=== PATIENT | female | born 1980 ===

== ENCOUNTER 2018-01-08 08:47 | Inpatient (IN) | payer MEDICAID, OTHER ==
[2018-01-08 09:16] VITALS: BMI 22.1
[2018-01-08 09:47] LABS: BASO % 0.5 % (0.0-2.0); EOS # 0.1 K/uL (0.0-0.7); EOS % 1.7 % (0.0-4.0); HEMOGLOBIN 11.4 g/dL (12.0-16.0); LYMPH # 1.9 K/uL (1.0-4.3); LYMPH % 31.9 % (20.0-40.0); MEAN CELL VOLUME 81.4 fl (81.0-99.0); MEAN CORPUSCULAR HEMOGLOBIN 25.7 pg (27.0-31.0); MEAN CORPUSCULAR HGB CONC 31.6 g/dL (33.0-37.0); MEAN PLATELET VOLUME 9.2 fl (7.2-11.7); MONO # 0.6 K/uL (0.0-0.8); MONO % 9.6 % (0.0-10.0); NEUT # 3.3 K/uL (1.8-7.0); NEUT % 56.3 % (50.0-75.0); NRBC % 0.1 % (0.0-0.0); RBC 4.41 Mil/uL (3.80-5.20); RED CELL DISTRIBUTION WIDTH 15.8 % (11.5-14.5); WHITE BLOOD COUNT 5.9 K/uL (4.8-10.8)
[2018-01-08 10:01] LABS: BLOOD UREA NITROGEN 6 mg/dl (7-17); CALCIUM 9.3 mg/dL (8.4-10.2); GFR NON-AFRICAN AMERICAN > 60
--- NOTE | 2018-01-08 10:01 | ED PDOC ---
Syncope/Near Syncope/Dizziness Time Seen by Provider: 01/08/18 09:07 Chief Complaint (Nursing): Syncope Chief Complaint (Provider): Syncope History Per: Patient, EMS History/Exam Limitations: no limitations Onset/Duration Of Symptoms: Hrs (OFFICE CLIN ASST) Activity At Onset Of Symptoms: Had Just Stood up Additional Complaint(s): 37 year old female presents to the ED via EMS complaining of experiencing a syncopal episode earlier today. Patient reports she had gotten up from bed to go to the bathroom when she passed out. Patient does not remember all the details and the episode was unwitnessed. She does remember hitting her head and waking up with a headache. Patient indicates feeling an electric shock down her neck to her arm during the fall. Denies biting tongue and urinary incontinence. She woke up right away and was immediately back to baseline. Denies CP or difficulty breathing. Patient feels anxious and has a headache and neck pain. She also reports having a history of migraines in the past as well as chronic neck pain for many years. Patient takes Dilaudid for neck pain PO at home and Xanax for anxiety. PMD: Dr. Mittal Past Medical History Reviewed: Historical Data, Nursing Documentation, Vital Signs Vital Signs: Last Vital Signs Temp 98.2 F 01/08/18 08:48 Pulse 72 01/08/18 08:48 Resp 18 01/08/18 08:48 BP 108/76 01/08/18 08:48 Pulse Ox 95 01/08/18 08:48 - Medical History PMH: Anemia, Anxiety, Cardia Arrhythmia, Migraine, Seizures, Chronic Pain Denies: HIV, Chronic Kidney Disease Other PMH: Chronic neck pain, sick sinus syndrome - Surgical History Surgical History: Pacemaker, Other surgeries: Tubal ligation - Family History Family History: States: Unknown Family Hx - Home Medications Home Medications: Ambulatory Orders Medication Instructions Recorded Fludrocortisone [Florinef] 0.2 mg PO HS 02/05/16 Midodrine [Proamatine] 10 mg PO TID 02/05/16 Quetiapine Fumarate [Seroquel] 100 mg PO HS 02/05/16 Gabapentin [Neurontin] 600 mg PO TID #90 tab 02/06/16 ALPRAZolam [Xanax] 0.25 mg PO HS 01/08/18 Aspirin [Ecotrin] 81 mg PO DAILY 01/08/18 Buspirone HCl [Buspirone HCl] 15 mg PO Q12 01/08/18 Digoxin [Digitek] 125 mcg PO DAILY 01/08/18 Ergocalciferol (Vitamin D2) 50,000 unit PO MO 01/08/18 [Vitamin D2] HYDROmorphone [Dilaudid] 2 mg PO Q4 PRN 01/08/18 - Allergies Allergies/Adverse Reactions: Allergies Allergy/AdvReac Type Severity Reaction Status Date / Time acetaminophen [From Percocet] Allergy RASH Verified 01/08/18 09:22 oxycodone HCl [From Percocet] Allergy RASH Verified 01/08/18 09:22 sumatriptan [From Imitrex] Allergy RASH Verified 01/08/18 09:22 sumatriptan succinate Allergy RASH Verified 01/08/18 09:22 [From Imitrex] local anesthetic Allergy RASH Uncoded 01/08/18 09:22 Review of Systems ROS Statement: Except As Marked, All Systems Reviewed And Found Negative Genitourinary Female: Negative for: Incontinence Musculoskeletal: Positive for: Neck Pain Neurological: Positive for: Headache Psych: Positive for: Anxiety Physical Exam - Reviewed Nursing Documentation Reviewed: Yes Vital Signs Reviewed: Yes - Physical Exam Appears: Positive for: Non-toxic, No Acute Distress Head Exam: Positive for: ATRAUMATIC, NORMAL INSPECTION, NORMOCEPHALIC Skin: Positive for: Normal Color, Warm, Dry Eye Exam: Positive for: Normal appearance, EOMI, PERRL ENT: Positive for: Normal ENT Inspection Neck: Negative for: Normal (diffuse tenderness) Cardiovascular/Chest: Positive for: Regular Rate, Rhythm, Other (Pacemaker on left side of chest with no swelling and tenderness to the area). Negative for: Murmur Respiratory: Positive for: Normal Breath Sounds. Negative for: Wheezing, Respiratory Distress Gastrointestinal/Abdominal: Positive for: Normal Exam, Soft. Negative for: Tenderness Extremity: Positive for: Normal ROM Neurologic/Psych: Positive for: Alert, belt picker II-XII (normal), Oriented. Negative for: Motor/Sensory Deficits - Laboratory Results Result Diagrams: 01/09/18 06:00 01/09/18 06:00 - ECG ECG Rhythm: Positive for: Venticular Paced. Negative for: Normal QRS, ST/T Changes Rate: 90 O2 Sat by Pulse Oximetry: 95 (RA) Pulse Ox Interpretation: Normal Medical Decision Making Medical Decision Making: Initial Impression: Possible syncopal episode Differential: --Cardiac arrhythmia, pacemaker dysfunction, seizures, vasovagal syncope --Head injury: intracranial bleeding --Neck pain: acute on chronic neck pain Initial Plan: --CT cervical spine --CT head --ECG --BMP --Drug screen --Troponin --Valproic acid --ED urine --ED urine dipstick --CBC --Reglan 10mg sodium chloride 0.9% 50mL --Toradol 30mg IV --Xanax 0.5mg PO 12:[address] FINDINGS: HEMORRHAGE: No intracranial hemorrhage. BRAIN: Normal puri-white matter differentiation and density are appreciated throughout the cerebrum and cerebellum with the brainstem appearing unremarkable as well. There is no mass effect. There is no suspicious extra-axial fluid collection and the midline brain anatomy appears diffusely unremarkable. VENTRICLES: Unremarkable. No hydrocephalus. CALVARIUM: No destructive bony lesion or displaced fracture identified including through the skullbase. PARANASAL SINUSES: Unremarkable as visualized. No significant inflammatory changes. MASTOID AIR CELLS: Unremarkable as visualized. No inflammatory changes. OTHER FINDINGS: None. IMPRESSION: Stable unremarkable noncontrast CT of the head. 12:23 CT Cervical Spine FINDINGS: VERTEBRAE: There is an anterior column fracture and involving the C4 vertebral body with the inferior endplate minimally anteriorly displaced. There is borderline anterior wedging of the vertebral body which may indicate that this is a hyperflexion injury. Both flexion and extension injury type not completely excluded. Mid and posterior columns of this level appear unremarkable with no fracture identified otherwise. The C4 spinous process is intact as well as bilateral facet joints and laminae. Normal alignment is appreciated nevertheless and there is no spondylolisthesis. No additional fractures seen throughout the remainder of the cerebral cervical spine with C1-2 articulation in configuration appearing normal. Craniocervical junction appears intact as well. Prevertebral soft tissues appear unremarkable. DISCS/SPINAL CANAL/NEURAL FORAMINA: No significant central canal or neural foraminal stenosis. Discs heights are grossly preserved. PARASPINAL SOFT TISSUES: Unremarkable. OTHER FINDINGS: None. IMPRESSION: Flexion/extension fracture of C4 including including a teardrop type triangular fracture of the inferior margins of anterior endplate of C4 but without posterior element fracture or distraction appreciated. Normal cervical curvature preserved. Please see discussion above. Findings discussed Dr. Alas with written down and read back verification , 12:10 p.m. [address] Knox who recommends hard collar and admission for possible surgery. Hard collar applied and exchanged from previous collar. Scribe Attestation: Documented by Arnoldo Gonzales acting as a scribe for Kristin Alas MD. Provider Scribe Attestation: All medical record entries made by the Scribe were at my direction and personally dictated by me. I have reviewed the chart and agree that the record accurately reflects my personal performance of the history, physical exam, medical decision making, and the department course for this patient. I have also personally directed, reviewed, and agree with the discharge instructions and disposition. Disposition - Clinical Impression Clinical Impression: Syncope and collapse, SSS (sick sinus syndrome), Cervical vertebral fracture, C4 cervical fracture - Patient ED Disposition Is Patient to be Admitted: Yes Discussed With : Antony Leblanc Counseled Patient/Family Regarding: Studies Performed, Diagnosis - Disposition Disposition Time: 13:00 Condition: FAIR - Pt Status Changed To: Hospital Disposition Of: Inpatient - Admit Certification Admit to Inpatient:: After my assessment, the patient will require hospitalization for at least two midnights. This is because of the severity of symptoms shown, intensity of services needed, and/or the medical risk in this patient being treated as an outpatient. - POA Present On Arrival: Falls Or Trauma
[2018-01-08 11:32] LABS: BARBITURATES, UR NEGATIVE (NEGATIVE); BENZODIAZEPINES, UR POSITIVE (NEGATIVE); OPIATES, UR NEGATIVE (NEGATIVE); PHENCYCLIDINE, UR NEGATIVE (NEGATIVE)
--- NOTE | 2018-01-08 12:13 | CT ---
Date of service: 01/08/2018 PROCEDURE: CT HEAD WITHOUT CONTRAST. HISTORY: head injury COMPARISON: Noncontrast head CT 02/05/2016. TECHNIQUE: Axial computed tomography images were obtained through the head/brain without intravenous contrast. Radiation dose: Total exam DLP = 838.73 mGy-cm. This CT exam was performed using one or more of the following dose reduction techniques: Automated exposure control, adjustment of the mA and/or kV according to patient size, and/or use of iterative reconstruction technique. FINDINGS: HEMORRHAGE: No intracranial hemorrhage. BRAIN: Normal puri-white matter differentiation and density are appreciated throughout the cerebrum and cerebellum with the brainstem appearing unremarkable as well. There is no mass effect. There is no suspicious extra-axial fluid collection and the midline brain anatomy appears diffusely unremarkable. VENTRICLES: Unremarkable. No hydrocephalus. CALVARIUM: No destructive bony lesion or displaced fracture identified including through the skullbase. PARANASAL SINUSES: Unremarkable as visualized. No significant inflammatory changes. MASTOID AIR CELLS: Unremarkable as visualized. No inflammatory changes. OTHER FINDINGS: None. IMPRESSION: Stable unremarkable noncontrast CT of the head.
[2018-01-08] MEDS ORDERED: Morphine 4 MG/ML VIAL IVP ONE ×2 (12:16→16:30)
--- NOTE | 2018-01-08 12:24 | CT ---
Date of service: 01/08/2018 PROCEDURE: CT Cervical Spine without contrast HISTORY: neck pain head injury hx of chronic pain COMPARISON: None available. TECHNIQUE: Axial computed tomography images were obtained of the cervical spine without the use of intravenous contrast. Coronal and sagittal reformatted images were created and reviewed. Radiation dose: Total exam DLP = 275.03 mGy-cm. This CT exam was performed using one or more of the following dose reduction techniques: Automated exposure control, adjustment of the mA and/or kV according to patient size, and/or use of iterative reconstruction technique. FINDINGS: VERTEBRAE: There is an anterior column fracture and involving the C4 vertebral body with the inferior endplate minimally anteriorly displaced. There is borderline anterior wedging of the vertebral body which may indicate that this is a hyperflexion injury. Both flexion and extension injury type not completely excluded. Mid and posterior columns of this level appear unremarkable with no fracture identified otherwise. The C4 spinous process is intact as well as bilateral facet joints and laminae. Normal alignment is appreciated nevertheless and there is no spondylolisthesis. No additional fractures seen throughout the remainder of the cerebral cervical spine with C1-2 articulation in configuration appearing normal. Craniocervical junction appears intact as well. Prevertebral soft tissues appear unremarkable. DISCS/SPINAL CANAL/NEURAL FORAMINA: No significant central canal or neural foraminal stenosis. Discs heights are grossly preserved. PARASPINAL SOFT TISSUES: Unremarkable. OTHER FINDINGS: None. IMPRESSION: Flexion/extension fracture of C4 including including a teardrop type triangular fracture of the inferior margins of anterior endplate of C4 but without posterior element fracture or distraction appreciated. Normal cervical curvature preserved. Please see discussion above. Findings discussed Dr. Alas with written down and read back verification 01/08/2018, 12:10 p.m.. .
[2018-01-08] MEDS ORDERED: Morphine 4 MG/ML VIAL ONE ×2 (12:25→16:28)
[2018-01-08] MEDS ORDERED: Valproate 500 MG in Sodium Chloride 0.9% 100 ML IVPB ONE ×2 (13:00→13:17)
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
--- NOTE | 2018-01-08 16:24 | CARD ---
APPROVED REPORT Date of service: 01/08/2018 EKG Measurement Heart [id number] <Conclusion> Ventricular-paced rhythm Abnormal ECG
--- NOTE | 2018-01-08 20:39 | CP.PCM.CON ---
History of Present Illness - History of Present Illness History of Present Illness: ASKED TO SEE PT BY DR MARTINEZ FOR SYNCOPE. 37 year old female presents to the ED via EMS complaining of experiencing a syncopal episode earlier today. Patient reports she had gotten up from bed to go to the bathroom. She remembers reaching down for the toilet bowl lid afterwhich she passed out. Patient does not remember all the details and the episode was unwitnessed. She does remember hitting her head and waking up with a headache. Denies biting tongue and urinary incontinence. She woke up right away and was immediately back to baseline. Denies CP or difficulty breathing. denies dizziness, palp, blurry vission, double vision pre- or post- episode. Patient takes Dilaudid for neck pain PO at home and Xanax for anxiety. 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 THE CURRENT SYNCOPAL EPISODE DID NOT HAVE PRECEDING SYMPTOMS. ALSO SHE HAS A SZ D/O HOWEVER THIS EPISODE DID NOT HAVE A PRODROME OR POST-ICTAL STATE. PT HAS A PPM FOR TACH/JORGE A ALSO GIVES A HX OF PE IN 2016, TREATED WITH ASA ONLY AT THIS POINT. Review of Systems - Constitutional Constitutional: As Per HPI. absent: Anorexia, Chills, Daytime Sleepiness, Excessive Sweating, Fatigue, Fever, Frequent Falls, Headache, Increased Appetite , Lethargy, Malaise, Night Sweats, Snoring, Sleep Apnea, Weight Gain, Weight Loss, Weakness, Other - EENT Eyes: As Per HPI. absent: Blind Spots, Blurred Vision, Change in Vision, Decreased Night Vision, Diplopia, Discharge, Dry Eye, Exophthalmos, Floaters, Irritation, Itchy Eyes, Loss of Peripheral Vision, Pain, Photophobia, Requires Corrective Lenses, Sees Flashes, Spots in Vision, Tunnel Vision, Other Visual Disturbances, Loss of Vision, Other Ears: As Per HPI. absent: Decreased Hearing, Ear Discharge, Ear Pain, Tinnitus , Abnormal Hearing, Disequilibrium, Other Nose/Mouth/Throat: As Per HPI. absent: Epistaxis, Nasal Congestion, Nasal Discharge, Nasal Obstruction, Nasal Trauma, Nose Pain, Post Nasal Drip, Sinus Pain, Sinus Pressure, Bleeding Gums, Change in Voice, Dental Pain, Dry Mouth, Dysphagia, Halitosis, Hoarsness, Lip Swelling, Mouth Lesions, Mouth Pain, Odynophagia, Sore Throat, Throat Swelling, Tongue Swelling, Facial Pain, Neck Pain, Neck Mass, Other - Breasts Breasts: As Per HPI. absent: Change in Shape, Mass, Pain, Nipple Discharge, Nipple Inversion, Skin Changes, Swelling, Other - Cardiovascular Cardiovascular: As Per HPI. absent: Acrocyanosis, Chest Pain, Chest Pain at Rest, Chest Pain with Activity, Claudication, Diaphoresis, Dyspnea, Dyspnea on Exertion, Edema, Irregular Heart Rhythm, Pain Radiating to Arm/Neck/Jaw, Leg Edema, Leg Ulcers, Lightheadedness, Orthopnea, Palpitations, Paroxysmal Nocturnal Dyspnea, Pedal Edema, Radiating Pain, Rapid Heart Rate, Slow Heart Rate, Syncope, Other - Respiratory Respiratory: As Per HPI. absent: Cough, Dyspnea, Hemoptysis, Dyspnea on Exertion, Wheezing, Snoring, Stridor, Pain on Inspiration, Chest Congestion, Excessive Mucous Production, Change in Mucous Color, Pain with Coughing, Other - Gastrointestinal Gastrointestinal: As Per HPI. absent: Abdominal Pain, Belching, Bloating, Change in Bowel Habits, Change in Stool Character, Coffee Ground Emesis, Constipation, Cramping, Diarrhea, Dyspepsia, Dysphagia, Early Satiety, Excessive Flatus, Fecal Incontinence, Heartburn, Hematemesis, Hematochezia, Loose Stools, Melena, Nausea, Odynophagia, Temesmus, Vomiting, Other - Genitourinary Genitourinary: As Per HPI. absent: Change in Urinary Stream, Difficulty Urinating, Dysuria, Flank Pain, Hematuria, Pyuria, Nocturia, Urinary Incontinence, Urinary Frequency, Urinary Hesitance, Urinary Urgency, Voiding Freq/Small Amts, Freq UTI, Hx Renal/Bladder Calculi, Hx /Renal Surgery, Bladder Distension, Other - Reproductive: Female Reproductive:Female: As Per HPI. absent: Amenorrhea, Amenorrhea/ Control, Currently Menstual, Cycle <21 Days, Cycle >35 Days, Cycle Variable, Menses 1-7 Days, Menses >/= 8 Days, Menses Variable, Cycle > 4 Weeks Between, No Menses for 6 Months, Heavy Menses, Light Menses, Normal Menses, Spotting Between Cycles , S/P Hysterectomy, Menopausal, Post Menopausal, Premenarche, Abnormal Vaginal Bleeding, Dysmenorrhea, Dyspareunia, Genital Lesions, Genital Pruritis, Pelvic Pain, Prolapse Symptoms, Sexual Dysfunction, Vaginal Discharge, Vaginal Dryness , Vaginal Odor, Vaginal Pruritis, Other - Menstruation Menstruation: As Per HPI. absent: Amenorrhea, Amenorrhea/ Control, Currently Menstual, Cycle <21 Days, Cycle >35 Days, Cycle Variable, Menses 1-7 Days, Menses >/= 8 Days, Menses Variable, Cycle > 4 Weeks Between, No Menses for 6 Months, Heavy Menses, Light Menses, Normal Menses, Spotting Between Cycles , S/P Hysterectomy, Menopausal, Post Menopausal, Premenarche, Abnormal Vaginal Bleeding, Dysmenorrhea, Other - Musculoskeletal Musculoskeletal: As Per HPI, Neck Pain. absent: Abnormal Gait, Arthralgias, Atrophy, Back Pain, Deformity, Joint Swelling, Limited Range of Motion, Loss of Height, Muscle Cramps, Muscle Weakness, Myalgias, Numbness, Radiating Pain into Limb, Stiffness, Tingling, Other - Integumentary Integumentary: As Per HPI. absent: Acne, Alopecia, Bleeding Lesions, Change in Hair, Change in Nails, Change in Pigmentation, Changing Lesions, Dry Skin, Erythema, Furuncle, Hirsutism, Lesions, New Lesions, Non-Healing Lesions, Photosensitivity, Pruritus, Rash, Skin Pain, Skin Ulcer, Sores, Striae, Swelling , Unusual Bruising, Wounds, Jaundice, Other - Neurological Neurological: As Per HPI. absent: Abnormal Gait, Abnormal Hearing, Abnormal Movements, Abnormal Speech, Behavioral Changes, Burning Sensations, Confusion, Convulsions, Disequilibrium, Dizziness, Numbness, Focal Weakness, Frequent Falls , Headaches, Lack of Coordination, Loss of Vision, Memory Loss, Paresthesias, Radicular Pain, Restless Legs, Sensory Deficit, Syncope, Tingling, Tremor, Vertigo, Weakness, Other Visual Disturbances, Other - Psychiatric Psychiatric: As Per HPI. absent: Abnormal Sleep Pattern, Anhedonia, Anxiety, Auditory Hallucinations, Behavioral Changes, Change in Appetite, Change in Libido, Confusion, Depression, Difficulty Concentrating, Hallucinations, Homicidal Ideation, Hopelessness, Irritability, Memory Loss, Mood Swings, Panic Attacks, Paranoia, Suicidal Ideation, Visual Hallucinations, Tactile Hallucinations, Other - Endocrine Endocrine: As Per HPI. absent: Change in Body Appearance, Change in Libido, Cold Intolorance, Deepening of Voice, Excessive Sweating, Fatigue, Flushing, Heat Intolorance, Increase in Ring/Shoe/Hat Size, Palpitations, Polydipsia, Polyphagia, Polyuria, Other - Hematologic/Lymphatic Hematologic: As Per HPI. absent: Easy Bleeding, Easy Bruising, Lymphadenopathy , Other Past Patient History - Past Medical History & Family History Past Medical History?: Yes - Past Social History Smoking Status: vapes Alcohol: None Drugs: Denies Domestic Violence: Negative - CARDIAC Hx Cardiac Disorders: Yes - PULMONARY Hx Respiratory Disorders: No - NEUROLOGICAL Hx Neurological Disorder: Yes - HEENT Hx HEENT Problems: No - RENAL Hx Chronic Kidney Disease: No - ENDOCRINE/METABOLIC Hx Endocrine Disorders: No - HEMATOLOGICAL/ONCOLOGICAL Hx Blood Disorders: Yes - INTEGUMENTARY Hx Dermatological Problems: No - MUSCULOSKELETAL/RHEUMATOLOGICAL Hx Musculoskeletal Disorders: Yes - GASTROINTESTINAL Hx Gastrointestinal Disorders: No - GENITOURINARY/GYNECOLOGICAL Hx Genitourinary Disorders: No - PSYCHIATRIC Hx Psychophysiologic Disorder: Yes - SURGICAL HISTORY Hx Surgeries: Yes Hx Section: Yes Hx Tubal Ligation: Yes Other/Comment: gastric sleeves - ANESTHESIA Hx Anesthesia: Yes Hx Anesthesia Reactions: No Meds Allergies/Adverse Reactions: Allergies Allergy/AdvReac Type Severity Reaction Status Date / Time acetaminophen [From Percocet] Allergy RASH Verified 01/08/18 09:22 oxycodone HCl [From Percocet] Allergy RASH Verified 01/08/18 09:22 sumatriptan [From Imitrex] Allergy RASH Verified 01/08/18 09:22 sumatriptan succinate Allergy RASH Verified 01/08/18 09:22 [From Imitrex] local anesthetic Allergy RASH Uncoded 01/08/18 09:22 Physical Exam - Constitutional Appears: Non-toxic - Head Exam Head Exam: ATRAUMATIC, NORMAL INSPECTION, NORMOCEPHALIC - Eye Exam Eye Exam: EOMI, Normal appearance, PERRL. absent: Conjunctival injection, Nystagmus, Periorbital swelling, Periorbital tenderness, Scleral icterus Pupil Exam: NORMAL ACCOMODATION, PERRL. absent: Fixed, Irregular, Miosis, Mydriatic, Unequal - ENT Exam ENT Exam: Mucous Membranes Moist, Normal Exam. absent: Mucous Membranes Dry, Normal External Ear Exam, Normal Oropharynx, TM's Normal Bilaterally - Neck Exam Additional comments: IN NECK HARNESS. - Respiratory Exam Respiratory Exam: Clear to Auscultation Bilateral, NORMAL BREATHING PATTERN. absent: Accessory Muscle Use, Chest Wall Tenderness, Decreased Breath Sounds, Prolonged Expiratory Phase, Rales, Rhonchi, Wheezes, Respiratory Distress, Stridor - Cardiovascular Exam Cardiovascular Exam: REGULAR RHYTHM, +S1, +S2, Systolic Murmur. absent: Bradycardia, Tachycardia, Clicks, Diastolic murmur, Gallop, Irregular Rhythm, JVD, RRR, Rubs, +S4 - GI/Abdominal Exam GI & Abdominal Exam: Normal Bowel Sounds, Soft. absent: Bruit, Diminished Bowel Sounds, Distended, Firm, Guarding, Hernia, Hyperactive Bowel Sounds, Hypoactive Bowel Sounds, Mass, Organomegaly, Pulsatile Mass, Rebound, Rigid, Tenderness - Rectal Exam Rectal Exam: Deferred - Extremities Exam Extremities exam: Positive for: normal inspection. Negative for: calf tenderness, full ROM, joint swelling, normal capillary refill, pedal edema, tenderness, pedal pulses present - Back Exam Back exam: NORMAL INSPECTION. absent: CVA tenderness (L), CVA tenderness (R), FULL ROM, muscle spasm, paraspinal tenderness, rash noted, tenderness, vertebral tenderness - Neurological Exam Neurological exam: Alert, CN II-XII Intact, Oriented x3, Reflexes Normal - Psychiatric Exam Psychiatric exam: Normal Affect, Normal Mood - Skin Skin Exam: Dry, Intact, Normal Color, Warm Results - Vital Signs Recent Vital Signs: Last Vital Signs Temp 97.9 F 01/08/18 19:04 Pulse 59 L 01/08/18 19:04 Resp 20 01/08/18 19:04 BP 107/72 01/08/18 19:04 Pulse Ox 100 01/08/18 19:04 - Labs Result Diagrams: 01/09/18 06:00 01/09/18 06:00 Labs: Laboratory Results - last 24 hr 01/08/18 01/08/18 01/08/18 08:59 09:22 09:22 WBC RBC Hgb Hct MCV MCH MCHC RDW Plt Count MPV Neut % (Auto) Lymph % (Auto) [place] % (Auto) Eos % (Auto) Baso % (Auto) Neut # (Auto) Lymph # (Auto) [place] # (Auto) Eos # (Auto) Baso # (Auto) Sodium Potassium Chloride Carbon Dioxide Anion Gap BUN Creatinine Est GFR ( Amer) Est GFR (Non-Af Amer) POC Glucose (mg/dL) 80 Random Glucose Calcium Troponin I Urine Opiates Screen Negative Urine Methadone Screen Negative Ur Barbiturates Screen Negative Valproic Acid < 10.0 L Ur Phencyclidine Scrn Negative Ur Amphetamines Screen Negative U Benzodiazepines Scrn Positive U Oth Cocaine Metabols Negative U Cannabinoids Screen Negative 01/08/18 01/08/18 09:30 09:30 WBC 5.9 RBC 4.41 Hgb 11.4 L Hct 36.0 MCV 81.4 D MCH 25.7 L MCHC 31.6 L RDW 15.8 H Plt Count 165 MPV 9.2 Neut % (Auto) 56.3 Lymph % (Auto) 31.9 [place] % (Auto) 9.6 Eos % (Auto) 1.7 Baso % (Auto) 0.5 Neut # (Auto) 3.3 Lymph # (Auto) 1.9 [place] # (Auto) 0.6 Eos # (Auto) 0.1 Baso # (Auto) 0.0 Sodium 138 Potassium 3.7 Chloride 106 Carbon Dioxide 25 Anion Gap 11 BUN 6 L Creatinine 0.6 L Est GFR ( Amer) > 60 Est GFR (Non-Af Amer) > 60 POC Glucose (mg/dL) Random Glucose 88 Calcium 9.3 Troponin I < 0.0120 Urine Opiates Screen Urine Methadone Screen Ur Barbiturates Screen Valproic Acid Ur Phencyclidine Scrn Ur Amphetamines Screen U Benzodiazepines Scrn U Oth Cocaine Metabols U Cannabinoids Screen Assessment & Plan (1) Syncope Status: Acute (2) SSS (sick sinus syndrome) Status: Acute (3) Orthostatic hypotension Status: Acute (4) Seizure disorder Status: Acute (5) Hx pulmonary embolism Status: Acute (6) Low BP Status: Acute - Assessment and Plan (Free Text) Plan: WOULD CONT MEDS IS. CANNOT TAKE BB OR CCB FOR TACHY/JORGE A DUE TO BP. ETIOLOGY OF SYNCOPE UNCLEAR, MAY BE MULTIFACTORIAL. WILL NEED ECHO.
[2018-01-08] MEDS ORDERED: Dextrose 5%/0.9% NS 1,000 ML IV SCH (22:45)
[2018-01-09 07:36] LABS: HEMOGLOBIN 10.3 g/dL (12.0-16.0); MEAN CELL VOLUME 80.7 fl (81.0-99.0); MEAN CORPUSCULAR HEMOGLOBIN 26.2 pg (27.0-31.0); MEAN CORPUSCULAR HGB CONC 32.5 g/dL (33.0-37.0); RBC 3.94 Mil/uL (3.80-5.20); RED CELL DISTRIBUTION WIDTH 15.9 % (11.5-14.5); WHITE BLOOD COUNT 5.9 K/uL (4.8-10.8)
[2018-01-09 07:53] LABS: ALB/GLOB RATIO 1.2 (1.0-2.1); ALBUMIN 3.3 g/dL (3.5-5.0); ALT/SGPT 19 U/L (9-52); AST/SGOT 16 U/L (14-36); BLOOD UREA NITROGEN 7 mg/dl (7-17); CALCIUM 8.6 mg/dL (8.4-10.2); GFR NON-AFRICAN AMERICAN > 60; HDL CHOLESTEROL 40 MG/DL (30-70)
[2018-01-09 08:03] LABS: LDL CHOLESTEROL 85 mg/dL (0-129)
[2018-01-09] MEDS: Digoxin 125 mcg (0.125 mg) Tab PO SCH (08:07)
[2018-01-09] MEDS: Pantoprazole 40 mg EC Tab PO SCH (08:08)
[2018-01-09 08:14] LABS: T4 7.64 ug/dl (5.5-11.0)
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
[2018-01-10] MEDS ORDERED: Valproate 500 MG in Sodium Chloride 0.9% 100 ML IVPB ONE (07:16)
[2018-01-10] MEDS: Pantoprazole 40 mg EC Tab PO SCH (08:13)
[2018-01-10] MEDS: Digoxin 125 mcg (0.125 mg) Tab PO SCH (08:15)
[2018-01-10] MEDS: Magnesium Oxide 400 mg Tab UD PO SCH ×2 (08:34→18:03)
[2018-01-10 14:06] LABS: INR 1.2; PROTHROMBIN TIME 13.4 Seconds (9.8-13.1)
[2018-01-10 14:08] LABS: PARTIAL THROMBOPLASTIN TIME 30.8 Seconds (25.6-37.1)
[2018-01-10] MEDS ORDERED: Valproate 1,000 MG in Sodium Chloride 0.9% 100 ML IVPB ONE (14:54)
--- NOTE | 2018-01-10 15:27 | CP.PCM.PN ---
Subjective - Subjective Subjective: Cervical pain Objective - Vital Signs/Intake and Output Vital Signs (last 24 hours): Temp Pulse Resp BP Pulse Ox 98 F 82 18 97/65 L 100 01/10/18 12:12 01/10/18 12:12 01/10/18 12:12 01/10/18 12:12 01/10/18 12:12 - Medications Medications: Current Medications Alprazolam (Xanax) 0.25 mg PO HS PRN PRN Reason: Anxiety Stop: 01/15/18 22:46 Last Admin: 01/10/18 02:58 Dose: 0.25 mg Buspirone HCl (Buspar) 15 mg PO Q12 [facility] Last Admin: 01/10/18 08:14 Dose: 15 mg Digoxin (Digoxin) 0.125 mg PO DAILY [facility] Last Admin: 01/10/18 08:15 Dose: 0.125 mg Ergocalciferol (Drisdol 50,000 Intl Units Cap) 1 cap PO [facility] Fludrocortisone Acetate (Florinef) 0.2 mg PO HS [facility] Last Admin: 01/09/18 21:19 Dose: 0.2 mg Gabapentin (Neurontin) 600 mg PO TID [facility] Last Admin: 01/10/18 15:09 Dose: 600 mg Hydromorphone HCl (Dilaudid) 2 mg PO Q4 PRN PRN Reason: Pain, moderate (4-7) Last Admin: 01/09/18 08:08 Dose: 2 mg Valproate Sodium 500 mg/ (Sodium Chloride) 105 mls @ 0 mls/hr IVPB Q12 [facility] PRN Reason: Per Protocol Magnesium Oxide (Mag-Ox) 400 mg PO BID [facility] Last Admin: 01/10/18 08:34 Dose: 400 mg Midodrine (Proamatine) 10 mg PO TID [facility] Last Admin: 01/10/18 15:13 Dose: 10 mg Morphine Sulfate (Morphine) 4 mg IVP Q4 PRN PRN Reason: Pain, severe (8-10) Last Admin: 01/10/18 12:06 Dose: 4 mg Ondansetron HCl (Zofran Inj) 4 mg IVP Q6 PRN PRN Reason: Nausea/Vomiting Pantoprazole Sodium (Protonix Ec Tab) 40 mg PO DAILY [facility] Last Admin: 01/10/18 08:13 Dose: 40 mg Quetiapine Fumarate (Seroquel) 100 mg PO HS [facility] Last Admin: 01/09/18 21:18 Dose: 100 mg - Labs Labs: 01/09/18 06:00 01/09/18 06:00 PT 13.4 Seconds (9.8-13.1) H 01/10/18 13:39 INR 1.2 01/10/18 13:39 APTT 30.8 Seconds (25.6-37.1) 01/10/18 13:39 - Constitutional Appears: No Acute Distress - Head Exam Head Exam: NORMAL INSPECTION - Eye Exam Eye Exam: PERRL - ENT Exam ENT Exam: Normal Exam - Neck Exam Additional comments: C Collar - Respiratory Exam Respiratory Exam: Clear to Ausculation Bilateral - Cardiovascular Exam Cardiovascular Exam: REGULAR RHYTHM - Back Exam Back Exam: NORMAL INSPECTION - Neurological Exam Neurological Exam: Alert, CN II-XII Intact, Oriented x3. absent: Motor Sensory Deficit - Psychiatric Exam Psychiatric exam: Normal Affect, Normal Mood - Skin Skin Exam: Warm Assessment and Plan (1) C4 cervical fracture Status: Acute (2) Syncope Status: Acute (3) Pacemaker Status: Acute (4) SSS (sick sinus syndrome) Status: Acute (5) Orthostatic hypotension Status: Chronic (6) Hx pulmonary embolism Status: Acute (7) Hx of migraines Status: Acute - Assessment and Plan (Free Text) Plan: continue Depakote, Neurontine, Florinef, Proamatine, Morphine and rest of treatment, discussed with Neurosurgeon , planning Surgical procedure in am, pending Cardiology clearance for Surgery.
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
[2018-01-10] MEDS: Valproate 500 MG in Sodium Chloride 0.9% 100 ML IVPB SCH (21:36)
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
[2018-01-11] MEDS: Valproate 500 MG in Sodium Chloride 0.9% 100 ML IVPB SCH ×2 (08:47→21:16)
[2018-01-11] MEDS: Digoxin 125 mcg (0.125 mg) Tab PO SCH (09:00)
[2018-01-11] MEDS: Magnesium Oxide 400 mg Tab UD PO SCH ×2 (09:00→17:00)
[2018-01-11] MEDS: Pantoprazole 40 mg EC Tab PO SCH (09:00)
[2018-01-11 11:48] LABS: SQUAMOUS EPITHIAL 18 /hpf (0-5); URINE BACTERIA MANY (<OCC); URINE BILIRUBIN NEGATIVE (NEGATIVE); URINE BLOOD NEGATIVE (NEGATIVE); URINE CLARITY CLOUDY (Clear); URINE GLUCOSE (UA) NEG (Normal); URINE LEUKOCYTE ESTERASE LARGE Leu/uL (Negative); URINE PROTEIN 30 mg/dL (NEGATIVE)
[2018-01-11 11:52] LABS: URINE COLOR YELLOW (YELLOW)
[2018-01-11] MEDS ORDERED: cefTRIAXone 1 GM in Sodium Chloride 0.9% 100 ML IVPB STA (12:05)
--- NOTE | 2018-01-11 12:10 | CP.PCM.PN ---
Subjective - Date & Time of Evaluation Date of Evaluation: 01/11/18 Time of Evaluation: 14:00 - Subjective Subjective: echo images reviewed. ef and diastolic fxn nml Objective - Vital Signs/Intake and Output Vital Signs (last 24 hours): Temp Pulse Resp BP Pulse Ox 97.9 F 85 18 104/71 99 01/11/18 07:56 01/11/18 07:56 01/11/18 07:56 01/11/18 07:56 01/11/18 07:56 - Medications Medications: Current Medications Alprazolam (Xanax) 0.25 mg PO HS PRN PRN Reason: Anxiety Stop: 01/15/18 22:46 Last Admin: 01/10/18 21:34 Dose: 0.25 mg Buspirone HCl (Buspar) 15 mg PO Q12 [facility] Last Admin: 01/10/18 21:35 Dose: 15 mg Digoxin (Digoxin) 0.125 mg PO DAILY [facility] Last Admin: 01/10/18 08:15 Dose: 0.125 mg Ergocalciferol (Drisdol 50,000 Intl Units Cap) 1 cap PO MO [facility] Fludrocortisone Acetate (Florinef) 0.2 mg PO HS [facility] Last Admin: 01/10/18 21:35 Dose: 0.2 mg Gabapentin (Neurontin) 600 mg PO TID [facility] Last Admin: 01/10/18 18:03 Dose: 600 mg Hydromorphone HCl (Dilaudid) 2 mg PO Q4 PRN PRN Reason: Pain, moderate (4-7) Last Admin: 01/09/18 08:08 Dose: 2 mg Valproate Sodium 500 mg/ (Sodium Chloride) 105 mls @ 0 mls/hr IVPB Q12 MARYAM PRN Reason: Per Protocol Last Admin: 01/11/18 08:47 Dose: 90 mls/hr Ceftriaxone Sodium 1 gm/ (Sodium Chloride) 100 mls @ 100 mls/hr IVPB STAT STA PRN Reason: Protocol Stop: 01/11/18 13:04 Magnesium Oxide (Mag-Ox) 400 mg PO BID [facility] Last Admin: 01/10/18 18:03 Dose: 400 mg Midodrine (Proamatine) 10 mg PO TID [facility] Last Admin: 01/10/18 18:03 Dose: 10 mg Morphine Sulfate (Morphine) 4 mg IVP Q4 PRN PRN Reason: Pain, severe (8-10) Last Admin: 01/11/18 11:41 Dose: 4 mg Ondansetron HCl (Zofran Inj) 4 mg IVP Q6 PRN PRN Reason: Nausea/Vomiting Pantoprazole Sodium (Protonix Ec Tab) 40 mg PO DAILY [facility] Last Admin: 01/10/18 08:13 Dose: 40 mg Quetiapine Fumarate (Seroquel) 100 mg PO HS [facility] Last Admin: 01/10/18 22:42 Dose: 100 mg - Labs Labs: 01/09/18 06:00 01/09/18 06:00 PT 13.4 Seconds (9.8-13.1) H 01/10/18 13:39 INR 1.2 01/10/18 13:39 APTT 30.8 Seconds (25.6-37.1) 01/10/18 13:39 - Constitutional Appears: Well - Head Exam Head Exam: ATRAUMATIC, NORMAL INSPECTION, NORMOCEPHALIC - Eye Exam Eye Exam: EOMI, Normal appearance, PERRL. absent: Conjunctival injection, Nystagmus, Periorbital swelling, Periorbital tenderness, Scleral icterus Pupil Exam: NORMAL ACCOMODATION, PERRL - ENT Exam ENT Exam: Mucous Membranes Moist, Normal Exam. absent: Mucous Membranes Dry, Normal External Ear Exam, Normal Oropharynx, TM's Normal Bilaterally - Neck Exam Neck Exam: Tenderness - Respiratory Exam Respiratory Exam: Clear to Ausculation Bilateral, NORMAL BREATHING PATTERN. absent: Accessory Muscle Use, Chest Wall Tenderness, Decreased Breath Sounds, Prolonged Expiratory Phase, Rales, Rhonchi, Wheezes, Respiratory Distress, Stridor - Cardiovascular Exam Cardiovascular Exam: REGULAR RHYTHM, +S1, +S2, Murmur. absent: Bradycardia, Tachycardia, Clicks, Diastolic murmur, Gallop, Irregular Rhythm, JVD, RRR, Rubs , +S4 - GI/Abdominal Exam GI & Abdominal Exam: Soft, Normal Bowel Sounds. absent: Bruit, Distended, Firm , Guarding, Rigid, Tenderness, Diminished Bowel Sounds, Hernia, Hyperactive Bowel Sounds, Hypoactive Bowel Sounds, Organomegaly, Pulsatile Mass, Rebound, Mass - Extremities Exam Extremities Exam: Full ROM, Normal Capillary Refill, Normal Inspection. absent : Calf Tenderness, Joint Swelling, Pedal Edema, Tenderness - Back Exam Back Exam: NORMAL INSPECTION. absent: CVA tenderness (L), CVA tenderness (R), Full ROM, muscle spasm, paraspinal tenderness, rash noted, tenderness, vertebral tenderness - Neurological Exam Neurological Exam: Alert, Awake, CN II-XII Intact, Oriented x3 - Psychiatric Exam Psychiatric exam: Normal Affect, Normal Mood. absent: Agitated, Anxious, Depressed, Flat Affect, Homicidal Ideation, Manic, Suicidal Ideation - Skin Skin Exam: Dry, Intact, Normal Color, Warm. absent: Abrasion, Cyanosis, Diaphoretic, Erythema, Mottled, Pallor, Pallor, Petechiae, Rash, Urticaria, Vesicles Assessment and Plan (1) Syncope Status: Acute (2) SSS (sick sinus syndrome) Status: Acute (3) Orthostatic hypotension Status: Chronic (4) Seizure disorder Status: Acute (5) Hx pulmonary embolism Status: Acute (6) Low BP Status: Acute - Assessment and Plan (Free Text) Plan: pt may proceed to OR. she is low risk for cad and anesthesia from cv perspective. SHOULD CONSIDER ADDING SALT PILLS FOR PTS LOW BP.
[2018-01-11] MEDS ORDERED: GELATIN SPONGE,ABSORB/PORCINE 1 EACH SPONGE TP ONE (13:03)
[2018-01-11] MEDS ORDERED: Thrombin Topical 5,000 Int Units Spray Kit ONE (13:03)
[2018-01-11] MEDS ORDERED: Bacitracin Ointment 30 GM TUBE ONE (13:03)
[2018-01-11] MEDS ORDERED: APROTININ/FIBRINOGEN(TISSEEL) ONE (13:04)
[2018-01-11] MEDS ORDERED: Rocuronium 10 mg/ml (5 ml) ONE (13:12)
[2018-01-11] MEDS ORDERED: Succinylcholine 200 mg/10 ml Inj IV ONE (13:12)
[2018-01-11] MEDS ORDERED: Midazolam 2 MG/2 ML VIAL ONE (13:12)
[2018-01-11] MEDS ORDERED: Propofol 10 mg/ml Inj (20 ML) ONE (13:12)
[2018-01-11] MEDS ORDERED: Propofol 10 mg/ml 1,000 MG/100 ML VIAL ONE (13:21)
[2018-01-11] MEDS ORDERED: Sodium Chloride 0.9% 500 ML IV ONE (14:00)
[2018-01-11] MEDS ORDERED: Lactated Ringer's 1,000 ML IV ONE ×2 (14:00)
[2018-01-11] MEDS ORDERED: ePHEDrine 50 mg/ml Inj ONE (14:13)
--- NOTE | 2018-01-11 14:48 | CARD ---
APPROVED REPORT Date of service: 01/11/2018 EXAM: Two-dimensional and M-mode echocardiogram with Doppler and color Doppler. Other Information Quality : AverageRhythm : Pacemaker Technically limited study due to Unable to manuver . INDICATION Pre-Op Syncope Surgery/Intervention Pacemaker: 2D DIMENSIONS IVSd0.65 (0.7-1.1cm)LVDd4.20 (3.9-5.9cm) LVOT Diameter1.91 (1.8-2.4cm)PWd0.82 (0.7-1.1cm) IVSs0.96 (0.8-1.2cm)LVDs3.91 (2.5-4.0cm) FS (%) 6.8 %PWs0.95 (0.8-1.2cm) M-Mode DIMENSIONS Left Atrium (MM)2.84 (2.5-4.0cm)IVSd0.74 (0.7-1.1cm) Aortic Root3.20 (2.2-3.7cm)LVDd4.44 (4.0-5.6cm) Aortic Cusp Exc.2.23 (1.5-2.0cm)PWd0.88 (0.7-1.1cm) IVSs0.97 cmFS (%) 20 % LVDs3.53 (2.0-3.8cm)PWs1.02 cm Aortic Valve AoV Peak Rcubcuvs95.8cm/sAoV VTI21.4cmAO Peak GR.4mmHg LVOT Peak Xktqfaae38.8cm/sLVOT VTI12.61cmAO Mean GR.2mmHg Mitral Valve MV E Axnnksbd69.2cm/sMV DECEL [id number] A Jmtiuldz79.7cm/s MV XEI38rsY/A ratio1.4MVA (PHT)3.79cm2 TDI E/Lateral E'0.0E/Medial E'0.0 Tricuspid Valve TR Peak Pxwioamw422an/sRAP [id number] Peak Gr.18mmHg [id number] LEFT VENTRICLE The left ventricle is normal size. There is normal left ventricular wall thickness. The left ventricular ejection fraction is within the normal range. The Ejection Fraction is 65-70%. No regional wall motion abnormalities noted.. The left ventricular diastolic function is normal. No left ventricle thrombus noted on this study. There is no ventricular septal defect visualized. There is no mass noted in the left ventricle. RIGHT VENTRICLE The right ventricle is normal size. There is normal right ventricular wall thickness. The right ventricular systolic function is normal. RV pacemaker lead present ATRIA The left atrium size is normal. The right atrium size is normal. Not clearly seen, but suspect RA pacemaker lead present as patient appears to be in NSR The interatrial septum is intact with no evidence for an atrial septal defect. AORTIC VALVE The aortic valve is normal in structure. No aortic regurgitation is present. There is no aortic valvular stenosis. MITRAL VALVE The mitral valve is normal in structure. There is no mitral valve stenosis. There is trivial mitral valve regurgitation noted. TRICUSPID VALVE The tricuspid valve is normal in structure. There mild no tricuspid valve regurgitation noted. PASP within normal limits PULMONIC VALVE The pulmonary valve is normal in structure. There is no pulmonic valvular regurgitation. GREAT VESSELS The aortic root is normal in size. The ascending aorta is normal in size. The pulmonary artery is normal. The IVC is normal in size and collapses >50% with inspiration. PERICARDIAL EFFUSION There is no pericardial effusion. <Conclusion> Mild TR with normal PASP Normal LV function Probable right heart pacemaker leads The Ejection Fraction is 65-70%.
[2018-01-11] MEDS ORDERED: HEMOSTATIC MATRIX 10 ML DIS.NEEDLE TOP ONE (14:50)
[2018-01-11] MEDS ORDERED: Ketamine 50 mg/ml Inj (10 ml) ONE (15:04)
[2018-01-11] MEDS ORDERED: Dexamethasone 4 mg/1 ml ONE (15:18)
[2018-01-11] MEDS ORDERED: HYDROmorphone 1 mg/ml ISec IVP PRN ×2 (16:03→16:05)
--- NOTE | 2018-01-11 17:37 | RAD ---
Date of service: 01/11/2018 PROCEDURE: Intraoperative Fluoroscopy. HISTORY: CSPINE FINDINGS: Fluoroscopic assistance was provided. Please refer to the operative report for additional details.
[2018-01-11] MEDS: Potassium Ch 20mEq in D5-1/2NS 1,000 ML IV SCH (21:17)
[2018-01-11] MEDS ORDERED: Ergocalciferol 50,000 Intl Units Cap PO SCH (22:38)
[2018-01-12] MEDS: Morphine 4 MG/ML VIAL IVP PRN ×2 (02:53→09:38)
[2018-01-12] MEDS: Potassium Ch 20mEq in D5-1/2NS 1,000 ML IV SCH ×3 (06:10→15:42)
--- NOTE | 2018-01-12 08:13 | OP ---
Copied To: Gaetano Torres MD Attending MD: Gaetano Torres MD PROCEDURE DATE: 01/11/2018 PREOPERATIVE DIAGNOSIS: Unstable fracture C4. POSTOPERATIVE DIAGNOSIS: Unstable fracture C4. OPERATIONS PERFORMED: 1. Anterior cervical diskectomy, C4-C5. 2. Anterior cervical fusion, C4-C5. 3. Use of intervertebral device. 4. Use of spinal instrumentation. 5. Use of autograft by means of bone marrow aspiration. SURGEONS: Gaetano Torres MD and Gabriel Knox MD ANESTHESIA: General endotracheal intubation. DESCRIPTION OF PROCEDURE: The patient was brought to the operative room and placed on the operating table in the supine position. Intravenous antibiotics were administered, and the patient was intubated without any excessive posturing of her neck. Spinal cord monitoring leads were placed throughout the patient's body. Real-time monitoring was done by a quality technician fiberglass in room and remote monitoring was done by physician as well. Sequential compression boots were placed in each of the patient's legs. The arms were well padded and secured at her side. A small roll was placed beneath the patient's scapula to obtain some gentle extension of the neck. The patient's neck was then sterilely prepped and draped. The level of the incision was noted under fluoroscopy, and the incision was made sharply in the midline to the right along the Vic's line. This was taken out down through subcutaneous tissue using sharp and blunt dissection. Hemostasis was achieved using electrocautery. The platysma was divided in a vertical fashion and mobilized in all directions and a plane bluntly developed down to the anterior cervical vertebral bodies. The carotids were identified and gently retracted laterally, and the midline structures were taken medially. Prevertebral fascia was removed using peanut sponges. The anterior fragment could be seen and it was loose. The anterior longitudinal ligament appeared to have been torn as well. Needle was placed and was felt to be at the 4-5 disk, and this was confirmed under fluoroscopy. As the needle was removed, the annulus was marked and the longus colli muscles were cauterized and stripped back with a small leroy elevator. Self-retaining Trimline retractors were placed in the wound. We had excellent visualization of the operative field. Another confirmatory fluoroscopic view was taken with the needle and disk space, and once again verified we are at the appropriate level. At that time, the endotracheal cuff was deflated and re-inflated minimally in order to help avoid any compression injury to the surrounding structures. The annulus was sharply incised. As mentioned, the anterior fibers appeared to be torn. Disk materials were removed with a combination of small straight and curved curette along with the pituitary rongeur. The fracture fragment was loose and just came out as the disk material is being removed. As we got to the posterior margin of the disk, the operating microscope was brought into the field and the rest of the decompression done under microscopic visualization. Small Lamina Spreaders were used to the open up the disk space sequentially from side to side. As more disk materials removed, one could see that there was a tear in the posterior annulus and that we could visualize the posterior longitudinal ligaments. The remaining vestiges of disk and annulus along the posterior and longitudinal ligament removed using 1 and 2 mm Kerrison rongeurs. Once the ventral surface of the drill was completely decompressed, foraminotomies were carried out until we could easily pass a blunt tip nerve hook out, each neural foramina as well as beneath the vertebral bodies above and below the disk space. No motor stimulation was done as the patient has a seizure history, but SSEPs and EMGs remained stable. The disk space was copiously irrigated with antibiotic solution. Hemostasis was achieved with thrombinated Gelfoam powder. We then proceeded with the fusion part of the procedure. Needle was placed in the C4 vertebral body and C5 vertebral body and bone marrow aspirate was obtained. This was used to soak a piece of Conform hydroxyapatite sponge cube. Thrombinated Gelfoam powder was used for hemostasis at the donor state. Trials were done and a size 6 BENGAL cage was found to be best fit. The appropriate rasp was used again staying towards the right side to avoid the area where the fracture fragment had been. At that time, BENGAL cage canal was packed with the marrow soaked cube of Conform and coated with Optium gel. The cage was then tamped into place and countersunk. It visually appeared to be in excellent position. A 14 mm Acrobat Uniplate was then fixed to vertebral body using 12 mm self-drilling screws. Final fluoroscopic views showed excellent position of the hardware as well as the cage. The screws were locked into place. The wound was copiously irrigated with antibiotic solution. Hemostasis was achieved with bipolar cautery as well thrombinated Gelfoam powder. The wound was closed in layers with interrupted sutures of 3-0 Vicryl for the platysma and the subcutaneous tissue and the running subcuticular suture of 4-0 Monocryl was used for the skin. The closure was sealed with Dermabond. Once that was dried, a small ____ dressing was applied along with a soft cervical collar. The patient was then awakened and extubated. She was transferred back to her bed and taken to the recovery room in stable condition. She tolerated the procedure well. Estimated blood loss is 30 mL and received 1300 mL of crystalloid during the operation. She was actually moving her extremities at the time of her transfer. No permanent electrophysiologic abnormalities were noted at the completion of the case. Gaetano Torres MD
[2018-01-12] MEDS: Valproate 500 MG in Sodium Chloride 0.9% 100 ML IVPB SCH ×2 (09:45→21:20)
[2018-01-12] MEDS: Digoxin 125 mcg (0.125 mg) Tab PO SCH (09:47)
[2018-01-12] MEDS: Magnesium Oxide 400 mg Tab UD PO SCH ×2 (09:47→16:27)
[2018-01-12] MEDS: Pantoprazole 40 mg EC Tab PO SCH (09:47)
--- NOTE | 2018-01-12 13:34 | CP.PCM.PN ---
Subjective - Date & Time of Evaluation Date of Evaluation: 01/12/18 Time of Evaluation: 13:30 - Subjective Subjective: SPINE - POD #1 Pt resting in bed. Has not been OOB yet! She states her neck hurts too much and she gets lightheaded. I reminded her 95% of pts who have this type of surgery in a morning would go home the same day. VSS. Afebrile. Collar in place. Moves extremities actively and neuro grossly intact. Dressing dry. Plan: Need to encourage pt and mobilize her! Objective - Vital Signs/Intake and Output Vital Signs (last 24 hours): Temp Pulse Resp BP Pulse Ox 98.5 F 91 H 20 120/77 94 L 01/12/18 13:09 01/12/18 13:09 01/12/18 13:09 01/12/18 13:09 01/12/18 13:09 - Medications Medications: Current Medications Alprazolam (Xanax) 0.25 mg PO HS PRN PRN Reason: Anxiety Stop: 01/15/18 22:46 Last Admin: 01/11/18 21:24 Dose: 0.25 mg Buspirone HCl (Buspar) 15 mg PO Q12 [facility] Last Admin: 01/12/18 09:47 Dose: 15 mg Digoxin (Digoxin) 0.125 mg PO DAILY [facility] Last Admin: 01/12/18 09:47 Dose: 0.125 mg Ergocalciferol (Drisdol 50,000 Intl Units Cap) 1 cap PO MO [facility] Last Admin: 01/11/18 21:54 Dose: 1 cap Fludrocortisone Acetate (Florinef) 0.2 mg PO HS [facility] Last Admin: 01/11/18 21:54 Dose: 0.2 mg Gabapentin (Neurontin) 600 mg PO TID [facility] Last Admin: 01/12/18 13:18 Dose: 600 mg Hydromorphone HCl (Dilaudid) 1 mg IVP Q4 PRN PRN Reason: Pain, severe (8-10) Valproate Sodium 500 mg/ (Sodium Chloride) 105 mls @ 0 mls/hr IVPB Q12 [facility] PRN Reason: Per Protocol Last Admin: 01/12/18 09:45 Dose: 100 mls/hr Potassium Chloride/Dextrose/Sod Cl (Potassium Chl 20 Meq In D5-1/2ns) 1,000 mls @ 125 mls/hr IV .Q8H [facility] Last Admin: 01/12/18 09:47 Dose: 125 mls/hr Ceftriaxone Sodium 1 gm/ (Sodium Chloride) 100 mls @ 100 mls/hr IVPB DAILY [facility] PRN Reason: Protocol Last Admin: 01/12/18 13:17 Dose: 100 mls/hr Magnesium Oxide (Mag-Ox) 400 mg PO BID [facility] Last Admin: 01/12/18 09:47 Dose: 400 mg Midodrine (Proamatine) 10 mg PO TID [facility] Last Admin: 01/12/18 13:17 Dose: 10 mg Morphine Sulfate (Morphine) 2 mg IVP Q3 PRN PRN Reason: Pain, severe (8-10) Last Admin: 01/12/18 13:16 Dose: 2 mg Ondansetron HCl (Zofran Inj) 4 mg IVP Q6 PRN PRN Reason: Nausea/Vomiting Pantoprazole Sodium (Protonix Ec Tab) 40 mg PO DAILY [facility] Last Admin: 01/12/18 09:47 Dose: 40 mg Quetiapine Fumarate (Seroquel) 100 mg PO HS [facility] Last Admin: 01/11/18 21:54 Dose: 100 mg Tramadol HCl (Ultram) 50 mg PO Q4 PRN PRN Reason: Pain, Mild (1-3) - Labs Labs: 01/09/18 06:00 01/09/18 06:00 PT 13.4 Seconds (9.8-13.1) H 01/10/18 13:39 INR 1.2 01/10/18 13:39 APTT 30.8 Seconds (25.6-37.1) 01/10/18 13:39
--- NOTE | 2018-01-12 15:24 | CP.PCM.PN ---
Subjective - Date & Time of Evaluation Date of Evaluation: 01/12/18 Time of Evaluation: 15:24 - Subjective Subjective: labile bp doing well pod 1 Objective - Vital Signs/Intake and Output Vital Signs (last 24 hours): Temp Pulse Resp BP Pulse Ox 98.5 F 91 H 20 120/77 94 L 01/12/18 13:09 01/12/18 13:09 01/12/18 13:09 01/12/18 13:09 01/12/18 13:09 - Medications Medications: Current Medications Alprazolam (Xanax) 0.25 mg PO HS PRN PRN Reason: Anxiety Stop: 01/15/18 22:46 Last Admin: 01/11/18 21:24 Dose: 0.25 mg Buspirone HCl (Buspar) 15 mg PO Q12 [facility] Last Admin: 01/12/18 09:47 Dose: 15 mg Digoxin (Digoxin) 0.125 mg PO DAILY [facility] Last Admin: 01/12/18 09:47 Dose: 0.125 mg Ergocalciferol (Drisdol 50,000 Intl Units Cap) 1 cap PO MO [facility] Last Admin: 01/11/18 21:54 Dose: 1 cap Fludrocortisone Acetate (Florinef) 0.2 mg PO HS [facility] Last Admin: 01/11/18 21:54 Dose: 0.2 mg Gabapentin (Neurontin) 600 mg PO TID [facility] Last Admin: 01/12/18 13:18 Dose: 600 mg Hydromorphone HCl (Dilaudid) 1 mg IVP Q4 PRN PRN Reason: Pain, severe (8-10) Valproate Sodium 500 mg/ (Sodium Chloride) 105 mls @ 0 mls/hr IVPB Q12 [facility] PRN Reason: Per Protocol Last Admin: 01/12/18 09:45 Dose: 100 mls/hr Potassium Chloride/Dextrose/Sod Cl (Potassium Chl 20 Meq In D5-1/2ns) 1,000 mls @ 125 mls/hr IV .Q8H [facility] Last Admin: 01/12/18 09:47 Dose: 125 mls/hr Ceftriaxone Sodium 1 gm/ (Sodium Chloride) 100 mls @ 100 mls/hr IVPB DAILY [facility] PRN Reason: Protocol Last Admin: 01/12/18 13:17 Dose: 100 mls/hr Magnesium Oxide (Mag-Ox) 400 mg PO BID [facility] Last Admin: 01/12/18 09:47 Dose: 400 mg Midodrine (Proamatine) 10 mg PO TID [facility] Last Admin: 01/12/18 13:17 Dose: 10 mg Morphine Sulfate (Morphine) 2 mg IVP Q3 PRN PRN Reason: Pain, severe (8-10) Last Admin: 01/12/18 13:16 Dose: 2 mg Ondansetron HCl (Zofran Inj) 4 mg IVP Q6 PRN PRN Reason: Nausea/Vomiting Pantoprazole Sodium (Protonix Ec Tab) 40 mg PO DAILY [facility] Last Admin: 01/12/18 09:47 Dose: 40 mg Quetiapine Fumarate (Seroquel) 100 mg PO HS [facility] Last Admin: 01/11/18 21:54 Dose: 100 mg Sodium Chloride (Sodium Chloride Tab) 1 gm PO DAILY [facility] Tramadol HCl (Ultram) 50 mg PO Q4 PRN PRN Reason: Pain, Mild (1-3) - Labs Labs: 01/09/18 06:00 01/09/18 06:00 PT 13.4 Seconds (9.8-13.1) H 01/10/18 13:39 INR 1.2 01/10/18 13:39 APTT 30.8 Seconds (25.6-37.1) 01/10/18 13:39 Assessment and Plan (1) Syncope Status: Acute (2) SSS (sick sinus syndrome) Status: Acute (3) Orthostatic hypotension Status: Chronic (4) Seizure disorder Status: Acute (5) Hx pulmonary embolism Status: Acute (6) Low BP Status: Acute - Assessment and Plan (Free Text) Plan: add salt pills monitor on tele
--- NOTE | 2018-01-12 16:16 | CP.PCM.PN ---
Subjective - Date & Time of Evaluation Date of Evaluation: 01/12/18 Time of Evaluation: 10:30 - Subjective Subjective: F/U S/P Anterior Cervical Disectomy POD#1 Objective - Vital Signs/Intake and Output Vital Signs (last 24 hours): Temp Pulse Resp BP Pulse Ox 97.9 F 60 18 106/69 98 01/12/18 16:16 01/12/18 16:16 01/12/18 16:16 01/12/18 16:16 01/12/18 16:16 - Medications Medications: Current Medications Alprazolam (Xanax) 0.25 mg PO HS PRN PRN Reason: Anxiety Stop: 01/15/18 22:46 Last Admin: 01/11/18 21:24 Dose: 0.25 mg Buspirone HCl (Buspar) 15 mg PO Q12 [facility] Last Admin: 01/12/18 09:47 Dose: 15 mg Digoxin (Digoxin) 0.125 mg PO DAILY [facility] Last Admin: 01/12/18 09:47 Dose: 0.125 mg Ergocalciferol (Drisdol 50,000 Intl Units Cap) 1 cap PO MO [facility] Last Admin: 01/11/18 21:54 Dose: 1 cap Fludrocortisone Acetate (Florinef) 0.2 mg PO HS [facility] Last Admin: 01/11/18 21:54 Dose: 0.2 mg Gabapentin (Neurontin) 600 mg PO TID [facility] Last Admin: 01/12/18 13:18 Dose: 600 mg Hydromorphone HCl (Dilaudid) 1 mg IVP Q4 PRN PRN Reason: Pain, severe (8-10) Valproate Sodium 500 mg/ (Sodium Chloride) 105 mls @ 0 mls/hr IVPB Q12 [facility] PRN Reason: Per Protocol Last Admin: 01/12/18 09:45 Dose: 100 mls/hr Ceftriaxone Sodium 1 gm/ (Sodium Chloride) 100 mls @ 100 mls/hr IVPB DAILY [facility] PRN Reason: Protocol Last Admin: 01/12/18 13:17 Dose: 100 mls/hr Magnesium Oxide (Mag-Ox) 400 mg PO BID [facility] Last Admin: 01/12/18 09:47 Dose: 400 mg Midodrine (Proamatine) 10 mg PO TID [facility] Last Admin: 01/12/18 13:17 Dose: 10 mg Morphine Sulfate (Morphine) 2 mg IVP Q3 PRN PRN Reason: Pain, severe (8-10) Last Admin: 01/12/18 13:16 Dose: 2 mg Ondansetron HCl (Zofran Inj) 4 mg IVP Q6 PRN PRN Reason: Nausea/Vomiting Pantoprazole Sodium (Protonix Ec Tab) 40 mg PO DAILY [facility] Last Admin: 01/12/18 09:47 Dose: 40 mg Quetiapine Fumarate (Seroquel) 100 mg PO HS [facility] Last Admin: 01/11/18 21:54 Dose: 100 mg Sodium Chloride (Sodium Chloride Tab) 1 gm PO DAILY [facility] Tramadol HCl (Ultram) 50 mg PO Q4 PRN PRN Reason: Pain, Mild (1-3) - Labs Labs: 01/09/18 06:00 01/09/18 06:00 PT 13.4 Seconds (9.8-13.1) H 01/10/18 13:39 INR 1.2 01/10/18 13:39 APTT 30.8 Seconds (25.6-37.1) 01/10/18 13:39 - Constitutional Appears: No Acute Distress - Head Exam Head Exam: NORMAL INSPECTION - Eye Exam Eye Exam: PERRL - ENT Exam ENT Exam: Normal Exam - Neck Exam Additional comments: C Collar - Respiratory Exam Respiratory Exam: Clear to Ausculation Bilateral - Cardiovascular Exam Cardiovascular Exam: REGULAR RHYTHM - GI/Abdominal Exam GI & Abdominal Exam: Soft, Normal Bowel Sounds - Extremities Exam Extremities Exam: Normal Inspection - Back Exam Back Exam: NORMAL INSPECTION - Neurological Exam Neurological Exam: Alert, CN II-XII Intact, Oriented x3. absent: Motor Sensory Deficit - Psychiatric Exam Psychiatric exam: Normal Affect, Normal Mood - Skin Skin Exam: Warm Assessment and Plan (1) C4 cervical fracture Status: Acute (2) Syncope Status: Acute (3) Pacemaker Status: Acute (4) SSS (sick sinus syndrome) Status: Acute (5) Orthostatic hypotension Status: Chronic (6) Hx pulmonary embolism Status: Acute (7) Hx of migraines Status: Acute
[2018-01-13] MEDS: Morphine 4 MG/ML VIAL IVP PRN ×5 (02:26→22:41)
[2018-01-13] MEDS: Magnesium Oxide 400 mg Tab UD PO SCH ×2 (09:15→18:11)
[2018-01-13] MEDS: Pantoprazole 40 mg EC Tab PO SCH (09:15)
[2018-01-13] MEDS: Digoxin 125 mcg (0.125 mg) Tab PO SCH (09:16)
[2018-01-13] MEDS: Valproate 500 MG in Sodium Chloride 0.9% 100 ML IVPB SCH ×2 (09:17→22:43)
--- NOTE | 2018-01-13 17:08 | CP.PCM.DIS ---
Provider - Provider Date of Admission: 01/11/18 14:45 Attending physician: Antony Leblanc MD Diagnosis - Discharge Diagnosis (1) C4 cervical fracture Status: Acute (2) Syncope Status: Acute (3) Pacemaker Status: Acute (4) SSS (sick sinus syndrome) Status: Acute (5) Orthostatic hypotension Status: Chronic (6) Hx pulmonary embolism Status: Acute (7) Hx of migraines Status: Acute Hospital Course - Lab Results Lab Results: Micro Results 01/11/18 11:41 Urine Urine Culture - Final Escherichia Coli Most Recent Lab Values WBC 5.9 K/uL (4.8-10.8) 01/09/18 06:00 RBC 3.94 Mil/uL (3.80-5.20) 01/09/18 06:00 Hgb 10.3 g/dL (12.0-16.0) L 01/09/18 06:00 Hct 31.8 % (34.0-47.0) L 01/09/18 06:00 MCV 80.7 fl (81.0-99.0) L 01/09/18 06:00 MCH 26.2 pg (27.0-31.0) L 01/09/18 06:00 MCHC 32.5 g/dL (33.0-37.0) L 01/09/18 06:00 RDW 15.9 % (11.5-14.5) H 01/09/18 06:00 Plt Count 138 K/uL (130-400) 01/09/18 06:00 MPV 9.2 fl (7.2-11.7) 01/08/18 09:30 Neut % (Auto) 56.3 % (50.0-75.0) 01/08/18 09:30 Lymph % (Auto) 31.9 % (20.0-40.0) 01/08/18 09:30 [place] % (Auto) 9.6 % (0.0-10.0) 01/08/18 09:30 Eos % (Auto) 1.7 % (0.0-4.0) 01/08/18 09:30 Baso % (Auto) 0.5 % (0.0-2.0) 01/08/18 09:30 Neut # (Auto) 3.3 K/uL (1.8-7.0) 01/08/18 09:30 Lymph # (Auto) 1.9 K/uL (1.0-4.3) 01/08/18 09:30 [place] # (Auto) 0.6 K/uL (0.0-0.8) 01/08/18 09:30 Eos # (Auto) 0.1 K/uL (0.0-0.7) 01/08/18 09:30 Baso # (Auto) 0.0 K/uL (0.0-0.2) 01/08/18 09:30 PT 13.4 Seconds (9.8-13.1) H 01/10/18 13:39 INR 1.2 01/10/18 13:39 APTT 30.8 Seconds (25.6-37.1) 01/10/18 13:39 Sodium 139 mmol/l (132-148) 01/09/18 06:00 Potassium 4.2 MMOL/L (3.6-5.0) 01/09/18 06:00 Chloride 108 mmol/L (98-107) H 01/09/18 06:00 Carbon Dioxide 27 mmol/L (22-30) 01/09/18 06:00 Anion Gap 8 (10-20) L 01/09/18 06:00 BUN 7 mg/dl (7-17) 01/09/18 06:00 Creatinine 0.5 mg/dl (0.7-1.2) L 01/09/18 06:00 Est GFR ( Amer) > 60 01/09/18 06:00 Est GFR (Non-Af Amer) > 60 01/09/18 06:00 POC Glucose (mg/dL) 80 mg/dL (65-110) 01/08/18 08:59 Random Glucose 83 mg/dL (65-105) 01/09/18 06:00 Calcium 8.6 mg/dL (8.4-10.2) 01/09/18 06:00 Total Bilirubin 0.8 mg/dl (0.2-1.3) 01/09/18 06:00 AST 16 U/L (14-36) 01/09/18 06:00 ALT 19 U/L (9-52) 01/09/18 06:00 Alkaline Phosphatase 40 U/L (38-126) 01/09/18 06:00 Troponin I < 0.0120 ng/mL (0.00-0.120) 01/08/18 09:30 Total Protein 6.0 G/DL (6.3-8.2) L 01/09/18 06:00 Albumin 3.3 g/dL (3.5-5.0) L D 01/09/18 06:00 Globulin 2.7 gm/dL (2.2-3.9) 01/09/18 06:00 Albumin/Globulin Ratio 1.2 (1.0-2.1) 01/09/18 06:00 Triglycerides 54 mg/DL (0-149) 01/09/18 06:00 Cholesterol 149 mg/dL (0-199) 01/09/18 06:00 LDL Cholesterol Direct 85 mg/dL (0-129) 01/09/18 06:00 HDL Cholesterol 40 MG/DL (30-70) 01/09/18 06:00 Thyroxine (T4) 7.64 ug/dl (5.5-11.0) 01/09/18 06:00 TSH 3rd Generation 1.01 mIU/ML (0.46-4.68) 01/09/18 06:00 Urine Color Yellow (YELLOW) 01/11/18 11:00 Urine Clarity Cloudy (Clear) 01/11/18 11:00 Urine pH 6.0 (5.0-8.0) 01/11/18 11:00 Ur Specific [place] 1.028 (1.003-1.030) 01/11/18 11:00 Urine Protein 30 mg/dL (NEGATIVE) 01/11/18 11:00 Urine Glucose (UA) Neg mg/dL (Normal) 01/11/18 11:00 Urine Ketones 20 mg/dL (NEGATIVE) 01/11/18 11:00 Urine Blood Negative (NEGATIVE) 01/11/18 11:00 Urine Nitrate Negative (NEGATIVE) 01/11/18 11:00 Urine Bilirubin Negative (NEGATIVE) 01/11/18 11:00 Urine Urobilinogen 2.0 mg/dL (0.2-1.0) H 01/11/18 11:00 Ur Leukocyte Esterase Large María/uL (Negative) 01/11/18 11:00 Urine RBC (Auto) 13 /hpf (0-3) H 01/11/18 11:00 Urine Microscopic WBC 61 /hpf (0-5) H 01/11/18 11:00 Ur Squamous Epith Cells 18 /hpf (0-5) H 01/11/18 11:00 Urine Bacteria Many (<OCC) H 01/11/18 11:00 Urine Opiates Screen Negative (NEGATIVE) 01/08/18 09:22 Urine Methadone Screen Negative (NEGATIVE) 01/08/18 09:22 Ur Barbiturates Screen Negative (NEGATIVE) 01/08/18 09:22 Valproic Acid 75.9 ug/mL (50.0-100.0) 01/13/18 09:34 Ur Phencyclidine Scrn Negative (NEGATIVE) 01/08/18 09:22 Ur Amphetamines Screen Negative (NEGATIVE) 01/08/18 09:22 U Benzodiazepines Scrn Positive (NEGATIVE) 01/08/18 09:22 U Oth Cocaine Metabols Negative (NEGATIVE) 01/08/18 09:22 U Cannabinoids Screen Negative (NEGATIVE) 01/08/18 09:22 Blood Type A POSITIVE 01/11/18 15:10 Blood Type Confirm A POSITIVE 01/11/18 15:18 Antibody Screen Negative 01/11/18 15:10 BBK History Checked No verified bt 01/11/18 15:10 Discharge Exam - Head Exam Head Exam: NORMAL INSPECTION Discharge Plan - Discharge Medications Prescriptions: Ciprofloxacin HCl [Cipro] 500 mg PO BID #10 tablet Magnesium Oxide [Mag-Ox] 400 mg PO BID #30 tab traMADol [Ultram] 50 mg PO Q8 #15 tab - Follow Up Plan Condition: FAIR Disposition: HOME/ ROUTINE Instructions: Syncope (Fainting) (DC), Anterior Cervical Fusion (DC), Low Blood Pressure (DC) Referrals: Gaetano Torres MD [Staff Provider] - Antony Leblanc MD [Staff Provider] - Ravi Dunham MD [Medical Doctor] -
--- NOTE | 2018-01-13 20:55 | CP.PCM.PN ---
Subjective - Date & Time of Evaluation Date of Evaluation: 01/13/18 Time of Evaluation: 10:20 - Subjective Subjective: F/U S/p Anterior cervical Disectomy Pt c/o of Cervical pain. Objective - Vital Signs/Intake and Output Vital Signs (last 24 hours): Temp Pulse Resp BP Pulse Ox 98.3 F 78 20 109/74 98 01/13/18 20:04 01/13/18 20:04 01/13/18 20:04 01/13/18 20:04 01/13/18 20:04 - Medications Medications: Current Medications Alprazolam (Xanax) 0.25 mg PO HS PRN PRN Reason: Anxiety Stop: 01/15/18 22:46 Last Admin: 01/11/18 21:24 Dose: 0.25 mg Buspirone HCl (Buspar) 15 mg PO Q12 [facility] Last Admin: 01/13/18 09:17 Dose: 15 mg Digoxin (Digoxin) 0.125 mg PO DAILY [facility] Last Admin: 01/13/18 09:16 Dose: 0.125 mg Ergocalciferol (Drisdol 50,000 Intl Units Cap) 1 cap PO MO [facility] Last Admin: 01/11/18 21:54 Dose: 1 cap Fludrocortisone Acetate (Florinef) 0.2 mg PO HS [facility] Last Admin: 01/12/18 21:21 Dose: 0.2 mg Gabapentin (Neurontin) 600 mg PO TID [facility] Last Admin: 01/13/18 18:11 Dose: 600 mg Hydromorphone HCl (Dilaudid) 1 mg IVP Q4 PRN PRN Reason: Pain, severe (8-10) Valproate Sodium 500 mg/ (Sodium Chloride) 105 mls @ 0 mls/hr IVPB Q12 [facility] PRN Reason: Per Protocol Last Admin: 01/13/18 09:17 Dose: 100 mls/hr Ceftriaxone Sodium 1 gm/ (Sodium Chloride) 100 mls @ 100 mls/hr IVPB DAILY [facility] PRN Reason: Protocol Last Admin: 01/13/18 09:22 Dose: 100 mls/hr Magnesium Oxide (Mag-Ox) 400 mg PO BID [facility] Last Admin: 01/13/18 18:11 Dose: 400 mg Midodrine (Proamatine) 10 mg PO TID [facility] Last Admin: 01/13/18 18:12 Dose: 10 mg Morphine Sulfate (Morphine) 2 mg IVP Q3 PRN PRN Reason: Pain, severe (8-10) Last Admin: 01/13/18 18:19 Dose: 2 mg Ondansetron HCl (Zofran Inj) 4 mg IVP Q6 PRN PRN Reason: Nausea/Vomiting Pantoprazole Sodium (Protonix Ec Tab) 40 mg PO DAILY [facility] Last Admin: 01/13/18 09:15 Dose: 40 mg Quetiapine Fumarate (Seroquel) 100 mg PO HS [facility] Last Admin: 01/12/18 21:20 Dose: 100 mg Sodium Chloride (Sodium Chloride Tab) 1 gm PO DAILY [facility] Last Admin: 01/13/18 09:17 Dose: 1 gm Tramadol HCl (Ultram) 50 mg PO Q4 PRN PRN Reason: Pain, Mild (1-3) Last Admin: 01/13/18 16:10 Dose: 50 mg - Labs Labs: 01/09/18 06:00 01/09/18 06:00 PT 13.4 Seconds (9.8-13.1) H 01/10/18 13:39 INR 1.2 01/10/18 13:39 APTT 30.8 Seconds (25.6-37.1) 01/10/18 13:39 - Constitutional Appears: No Acute Distress - Head Exam Head Exam: NORMAL INSPECTION - Eye Exam Eye Exam: PERRL - ENT Exam ENT Exam: Normal Exam - Neck Exam Additional comments: C Collar - Respiratory Exam Respiratory Exam: Clear to Ausculation Bilateral - Cardiovascular Exam Cardiovascular Exam: REGULAR RHYTHM - GI/Abdominal Exam GI & Abdominal Exam: Soft, Normal Bowel Sounds - Extremities Exam Extremities Exam: Normal Inspection - Back Exam Back Exam: NORMAL INSPECTION - Neurological Exam Neurological Exam: Alert, CN II-XII Intact, Oriented x3. absent: Motor Sensory Deficit - Psychiatric Exam Psychiatric exam: Normal Affect, Normal Mood - Skin Skin Exam: Warm Assessment and Plan (1) C4 cervical fracture Status: Acute (2) Syncope Status: Acute (3) Pacemaker Status: Acute (4) SSS (sick sinus syndrome) Status: Acute (5) Orthostatic hypotension Status: Chronic (6) Hx pulmonary embolism Status: Acute (7) Hx of migraines Status: Acute - Assessment and Plan (Free Text) Plan: Social Service planning for discharge, continue Morphine and rest of Tx.
[2018-01-14] MEDS: Morphine 4 MG/ML VIAL IVP PRN (04:12)
--- NOTE | 2018-01-14 08:57 | CP.PCM.PN ---
Subjective - Date & Time of Evaluation Date of Evaluation: 01/14/18 Time of Evaluation: 08:55 - Subjective Subjective: Ms. Brewster was seen and examined at the bedside. She is alert, oriented, up in a chair. She denies any headache, but states of soreness around surgical site. She is able to follow simple commands. EEG showed a normal brain activity. There was no untoward events overnight. Objective - Vital Signs/Intake and Output Vital Signs (last 24 hours): Temp Pulse Resp BP Pulse Ox 98 F 77 18 94/61 L 97 01/14/18 08:14 01/14/18 08:14 01/14/18 08:14 01/14/18 08:14 01/14/18 08:14 - Medications Medications: Current Medications Alprazolam (Xanax) 0.25 mg PO HS PRN PRN Reason: Anxiety Stop: 01/15/18 22:46 Last Admin: 01/11/18 21:24 Dose: 0.25 mg Buspirone HCl (Buspar) 15 mg PO Q12 [facility] Last Admin: 01/13/18 22:42 Dose: 15 mg Digoxin (Digoxin) 0.125 mg PO DAILY [facility] Last Admin: 01/13/18 09:16 Dose: 0.125 mg Ergocalciferol (Drisdol 50,000 Intl Units Cap) 1 cap PO MO [facility] Last Admin: 01/11/18 21:54 Dose: 1 cap Fludrocortisone Acetate (Florinef) 0.2 mg PO HS [facility] Last Admin: 01/13/18 22:43 Dose: 0.2 mg Gabapentin (Neurontin) 600 mg PO TID [facility] Last Admin: 01/13/18 18:11 Dose: 600 mg Hydromorphone HCl (Dilaudid) 1 mg IVP Q4 PRN PRN Reason: Pain, severe (8-10) Valproate Sodium 500 mg/ (Sodium Chloride) 105 mls @ 0 mls/hr IVPB Q12 [facility] PRN Reason: Per Protocol Last Admin: 01/13/18 22:43 Dose: 100 mls/hr Ceftriaxone Sodium 1 gm/ (Sodium Chloride) 100 mls @ 100 mls/hr IVPB DAILY [facility] PRN Reason: Protocol Last Admin: 01/13/18 09:22 Dose: 100 mls/hr Magnesium Oxide (Mag-Ox) 400 mg PO BID [facility] Last Admin: 01/13/18 18:11 Dose: 400 mg Midodrine (Proamatine) 10 mg PO TID [facility] Last Admin: 01/13/18 18:12 Dose: 10 mg Morphine Sulfate (Morphine) 2 mg IVP Q3 PRN PRN Reason: Pain, severe (8-10) Last Admin: 01/14/18 04:12 Dose: 2 mg Ondansetron HCl (Zofran Inj) 4 mg IVP Q6 PRN PRN Reason: Nausea/Vomiting Pantoprazole Sodium (Protonix Ec Tab) 40 mg PO DAILY [facility] Last Admin: 01/13/18 09:15 Dose: 40 mg Quetiapine Fumarate (Seroquel) 100 mg PO HS [facility] Last Admin: 01/13/18 22:42 Dose: 100 mg Sodium Chloride (Sodium Chloride Tab) 1 gm PO DAILY [facility] Last Admin: 01/13/18 09:17 Dose: 1 gm Tramadol HCl (Ultram) 50 mg PO Q4 PRN PRN Reason: Pain, Mild (1-3) Last Admin: 01/13/18 16:10 Dose: 50 mg - Labs Labs: 01/09/18 06:00 01/09/18 06:00 PT 13.4 Seconds (9.8-13.1) H 01/10/18 13:39 INR 1.2 01/10/18 13:39 APTT 30.8 Seconds (25.6-37.1) 01/10/18 13:39 - Constitutional Appears: No Acute Distress - Head Exam Head Exam: NORMAL INSPECTION Additional comments: surgical dressing in her right side of the neck and a soft neck support. - Neurological Exam Neurological Exam: Alert, Awake, Oriented x3 Neuro motor strength exam: Left Upper Extremity: 4, Right Upper Extremity: 4, Left Lower Extremity: 4, Right Lower Extremity: 4 Additional comments: AOx3, follows commands. Sensation is intact. Assessment and Plan (1) Seizure disorder Assessment & Plan: Case discussed with Dr. Samlon, continue all current medical, physical, and occupational therapies. Recommend to follow up with neurosurgery upon discharge , outpatient neurologist to monitor seizure, medications and migraines, treat any electrolyte abnormalities, underlying infection, hydration. There are no other recommendations from neurology, will sign off from this case, please re- consult if needed. Status: Acute
[2018-01-14] MEDS ORDERED: Benzocaine/Menthol (Cepacol) Lozenge PO ONE (09:08)
[2018-01-14] MEDS: Digoxin 125 mcg (0.125 mg) Tab PO SCH (09:43)
[2018-01-14] MEDS: Magnesium Oxide 400 mg Tab UD PO SCH ×2 (09:45→17:26)
[2018-01-14 09:46] VITALS: PULSE 77
[2018-01-14] MEDS: Pantoprazole 40 mg EC Tab PO SCH (09:46)
[2018-01-14] MEDS ORDERED: Phenol 1.4% Throat Spray MT PRN (10:36)
[2018-01-14] MEDS: Valproic Acid 250 mg/5 ml UD Cup PO SCH ×2 (12:08→17:25)
[2018-01-14 15:54] VITALS: BP 105/74; PULSE 71; RESP 20; TEMP 98.3; O2SAT 97
--- NOTE | 2018-01-14 17:29 | CP.PCM.DIS ---
Provider - Provider Date of Admission: 01/11/18 14:45 Attending physician: Antony Leblanc MD Consults: Cardiology-Dr. Knapp Neuro Surgery-Dr. Knox Neurology-Dr. Dunham Time Spent in preparation of Discharge (in minutes): 35 Diagnosis - Discharge Diagnosis (1) C4 cervical fracture Status: Acute (2) Syncope Status: Acute (3) Pacemaker Status: Acute (4) SSS (sick sinus syndrome) Status: Acute (5) Orthostatic hypotension Status: Chronic (6) Hx pulmonary embolism Status: Acute (7) Hx of migraines Status: Acute Hospital Course - Lab Results Lab Results: Micro Results 01/11/18 11:41 Urine Urine Culture - Final Escherichia Coli Most Recent Lab Values WBC 5.9 K/uL (4.8-10.8) 01/09/18 06:00 RBC 3.94 Mil/uL (3.80-5.20) 01/09/18 06:00 Hgb 10.3 g/dL (12.0-16.0) L 01/09/18 06:00 Hct 31.8 % (34.0-47.0) L 01/09/18 06:00 MCV 80.7 fl (81.0-99.0) L 01/09/18 06:00 MCH 26.2 pg (27.0-31.0) L 01/09/18 06:00 MCHC 32.5 g/dL (33.0-37.0) L 01/09/18 06:00 RDW 15.9 % (11.5-14.5) H 01/09/18 06:00 Plt Count 138 K/uL (130-400) 01/09/18 06:00 MPV 9.2 fl (7.2-11.7) 01/08/18 09:30 Neut % (Auto) 56.3 % (50.0-75.0) 01/08/18 09:30 Lymph % (Auto) 31.9 % (20.0-40.0) 01/08/18 09:30 [place] % (Auto) 9.6 % (0.0-10.0) 01/08/18 09:30 Eos % (Auto) 1.7 % (0.0-4.0) 01/08/18 09:30 Baso % (Auto) 0.5 % (0.0-2.0) 01/08/18 09:30 Neut # (Auto) 3.3 K/uL (1.8-7.0) 01/08/18 09:30 Lymph # (Auto) 1.9 K/uL (1.0-4.3) 01/08/18 09:30 [place] # (Auto) 0.6 K/uL (0.0-0.8) 01/08/18 09:30 Eos # (Auto) 0.1 K/uL (0.0-0.7) 01/08/18 09:30 Baso # (Auto) 0.0 K/uL (0.0-0.2) 01/08/18 09:30 PT 13.4 Seconds (9.8-13.1) H 01/10/18 13:39 INR 1.2 01/10/18 13:39 APTT 30.8 Seconds (25.6-37.1) 01/10/18 13:39 Sodium 139 mmol/l (132-148) 01/09/18 06:00 Potassium 4.2 MMOL/L (3.6-5.0) 01/09/18 06:00 Chloride 108 mmol/L (98-107) H 01/09/18 06:00 Carbon Dioxide 27 mmol/L (22-30) 01/09/18 06:00 Anion Gap 8 (10-20) L 01/09/18 06:00 BUN 7 mg/dl (7-17) 01/09/18 06:00 Creatinine 0.5 mg/dl (0.7-1.2) L 01/09/18 06:00 Est GFR ( Amer) > 60 01/09/18 06:00 Est GFR (Non-Af Amer) > 60 01/09/18 06:00 POC Glucose (mg/dL) 80 mg/dL (65-110) 01/08/18 08:59 Random Glucose 83 mg/dL (65-105) 01/09/18 06:00 Calcium 8.6 mg/dL (8.4-10.2) 01/09/18 06:00 Total Bilirubin 0.8 mg/dl (0.2-1.3) 01/09/18 06:00 AST 16 U/L (14-36) 01/09/18 06:00 ALT 19 U/L (9-52) 01/09/18 06:00 Alkaline Phosphatase 40 U/L (38-126) 01/09/18 06:00 Troponin I < 0.0120 ng/mL (0.00-0.120) 01/08/18 09:30 Total Protein 6.0 G/DL (6.3-8.2) L 01/09/18 06:00 Albumin 3.3 g/dL (3.5-5.0) L D 01/09/18 06:00 Globulin 2.7 gm/dL (2.2-3.9) 01/09/18 06:00 Albumin/Globulin Ratio 1.2 (1.0-2.1) 01/09/18 06:00 Triglycerides 54 mg/DL (0-149) 01/09/18 06:00 Cholesterol 149 mg/dL (0-199) 01/09/18 06:00 LDL Cholesterol Direct 85 mg/dL (0-129) 01/09/18 06:00 HDL Cholesterol 40 MG/DL (30-70) 01/09/18 06:00 Thyroxine (T4) 7.64 ug/dl (5.5-11.0) 01/09/18 06:00 TSH 3rd Generation 1.01 mIU/ML (0.46-4.68) 01/09/18 06:00 Urine Color Yellow (YELLOW) 01/11/18 11:00 Urine Clarity Cloudy (Clear) 01/11/18 11:00 Urine pH 6.0 (5.0-8.0) 01/11/18 11:00 Ur Specific [place] 1.028 (1.003-1.030) 01/11/18 11:00 Urine Protein 30 mg/dL (NEGATIVE) 01/11/18 11:00 Urine Glucose (UA) Neg mg/dL (Normal) 01/11/18 11:00 Urine Ketones 20 mg/dL (NEGATIVE) 01/11/18 11:00 Urine Blood Negative (NEGATIVE) 01/11/18 11:00 Urine Nitrate Negative (NEGATIVE) 01/11/18 11:00 Urine Bilirubin Negative (NEGATIVE) 01/11/18 11:00 Urine Urobilinogen 2.0 mg/dL (0.2-1.0) H 01/11/18 11:00 Ur Leukocyte Esterase Large María/uL (Negative) 01/11/18 11:00 Urine RBC (Auto) 13 /hpf (0-3) H 01/11/18 11:00 Urine Microscopic WBC 61 /hpf (0-5) H 01/11/18 11:00 Ur Squamous Epith Cells 18 /hpf (0-5) H 01/11/18 11:00 Urine Bacteria Many (<OCC) H 01/11/18 11:00 Urine Opiates Screen Negative (NEGATIVE) 01/08/18 09:22 Urine Methadone Screen Negative (NEGATIVE) 01/08/18 09:22 Ur Barbiturates Screen Negative (NEGATIVE) 01/08/18 09:22 Valproic Acid 75.9 ug/mL (50.0-100.0) 01/13/18 09:34 Ur Phencyclidine Scrn Negative (NEGATIVE) 01/08/18 09:22 Ur Amphetamines Screen Negative (NEGATIVE) 01/08/18 09:22 U Benzodiazepines Scrn Positive (NEGATIVE) 01/08/18 09:22 U Oth Cocaine Metabols Negative (NEGATIVE) 01/08/18 09:22 U Cannabinoids Screen Negative (NEGATIVE) 01/08/18 09:22 Blood Type A POSITIVE 01/11/18 15:10 Blood Type Confirm A POSITIVE 01/11/18 15:18 Antibody Screen Negative 01/11/18 15:10 BBK History Checked No verified bt 01/11/18 15:10 - Date & Time of H&P Date of H&P: 01/09/18 Time of H&P: 14:00 Discharge Exam - Head Exam Head Exam: NORMAL INSPECTION - Eye Exam Eye Exam: PERRL - ENT Exam ENT Exam: Normal Exam - Neck Exam Additional comments: C collar - Respiratory Exam Respiratory Exam: NORMAL BREATHING PATTERN - Cardiovascular Exam Cardiovascular Exam: REGULAR RHYTHM - GI/Abdominal Exam GI & Abdominal Exam: Normal Bowel Sounds, Soft - Extremities Exam Extremities exam: normal inspection - Back Exam Back exam: NORMAL INSPECTION - Neurological Exam Neurological exam: Alert, CN II-XII Intact, Oriented x3 Additional comments: No motor sensory deficit. - Psychiatric Exam Psychiatric exam: Normal Affect, Normal Mood - Skin Skin Exam: Warm Discharge Plan - Discharge Medications Prescriptions: Ciprofloxacin HCl [Cipro] 500 mg PO BID #10 tablet Valproic Acid Cap [Depakene Cap] 500 mg PO BID #60 sgl Magnesium Oxide [Mag-Ox] 400 mg PO BID #30 tab traMADol [Ultram] 50 mg PO Q8 #15 tab - Follow Up Plan Condition: FAIR Disposition: DISCHARGED TO HOME CARE Instructions: Syncope (Fainting) (DC), Anterior Cervical Fusion (DC), Low Blood Pressure (DC) Additional Instructions: pt. cleared for discharge to Home today by and f/u with in 1 week Referrals: Gaetano Torres MD [Staff Provider] - Antony Leblanc MD [Staff Provider] - Ravi Dunham MD [Medical Doctor] -
--- NOTE | 2018-01-28 13:39 | PQF ---
PROVIDER RESPONSE TEXT: E. Coli UTI. REVIEWER QUERY TEXT: Urosepsis Urosepsis is documented in the Medical Record. Per [employer], urosepsis is an imp recise term. Please clarify in documentation the specific type of infection: -Bacturia -Urinary tract infection (specify specific location such as bladder, pyelonephritis, etc.) -Sepsis due to a urinary tract infection -Other The patient's Clinical Indicators include: URINE CULTURE - 01/11 FINAL: E COLI; COLONY COUNT - 100,000 PT. GIVEN CIPRO 500mg.; DISCHARGED on CIPRO. Query created by: Nandini Spain on 01/15/2018 1:56 PM Electronically signed by: Antony Leblanc MD 01/28/2018 1:35 PM
== END 2018-01-14 20:00 | disposition home health service (06) | DRG 472 ==
LOC: H.ER 08:47 → H.ERHOLD 13:16 → UNDOADMIN 13:16 → H.TEL 18:49 → H.ERHOLD 18:49 → H.TEL 01-11 14:45
PROVIDERS: ADMIT Internal Medicine Pulmonary Disease; ATTEND Internal Medicine Pulmonary Disease
PROC: 0RG20A0 Fusion of 2 or more Cervical Vertebral Joints with Interbody Fusion Device, Anterior Approach, Anterior Column, Open Approach (ICD-10-PCS; 2018-01-11)
PROC: 0RG2070 Fusion of 2 or more Cervical Vertebral Joints with Autologous Tissue Substitute, Anterior Approach, Anterior Column, Open Approach (ICD-10-PCS; 2018-01-11)
PROC: 0RB30ZZ Excision of Cervical Vertebral Disc, Open Approach (ICD-10-PCS; principal; 2018-01-11 13:00)
DX: S12.390A Other displaced fracture of fourth cervical vertebra, initial encounter for closed fracture (principal); N39.0 Urinary tract infection, site not specified; M48.02 Spinal stenosis, cervical region; I49.5 Sick sinus syndrome; G89.29 Other chronic pain; I95.1 Orthostatic hypotension; B96.20 Unspecified Escherichia coli [E. coli] as the cause of diseases classified elsewhere; G40.909 Epilepsy, unspecified, not intractable, without status epilepticus; W18.30XA Fall on same level, unspecified, initial encounter; G43.909 Migraine, unspecified, not intractable, without status migrainosus; F41.9 Anxiety disorder, unspecified; Z95.0 Presence of cardiac pacemaker; Z86.711 Personal history of pulmonary embolism; Z79.82 Long term (current) use of aspirin; Z88.6 Allergy status to analgesic agent; Z87.828 Personal history of other (healed) physical injury and trauma; Y92.002 Bathroom of unspecified non-institutional (private) residence as the place of occurrence of the external cause